=== PATIENT | female | born 1955 | race Caucasian/White ===

== ENCOUNTER 2020-05-23 17:19 | Outpatient (CLI) | payer BC, SELFPAY ==
--- NOTE | ~2020-05-23 | XR_ITS ---
EXAMINATION: XR shoulder LT min 2V EXAM DATE: 05/23/2020 17:47 INDICATION: Left shoulder pain, fall. Initial encounter. TECHNIQUE: The following left shoulder projections obtained: frontal projection with internal rotatio n, frontal projection with external rotation, Grashey, and scapular Y view (4+ views). There is no p rior study for comparison. FINDINGS: No evidence of left shoulder rotator cuff calcific tendinosis. There is mild glenohumeral and acromioclavicular joint primary osteoarthritis. There are no acute fractures or dislocations erica ntified. There is no subcutaneous gas. The soft tissue is unremarkable. There are no radiopaque f oreign bodies. IMPRESSION: No acute osseous findings. Reviewed, dictated and finalized at location A. IMPRESSION: No acute osseous findings.
== END 2020-05-23 17:20 | disposition home or self-care (01) ==
PROVIDERS: PCP Internal Medicine; Visit Provider Physician Assistant
DX: M25.512 Pain in left shoulder (principal)
CPT/HCPCS: 73030

== ENCOUNTER 2020-06-15 09:06 | Outpatient (CLI) | payer BC, SELFPAY ==
--- NOTE | ~2020-06-15 | MM_ITS ---
EXAMINATION: MM screening [facility] BI w [place] HISTORY: Screening mammogram TECHNIQUE: Craniocaudal and mediolateral oblique 3-D tomosynthesis images were obtained and synthetic 2-D images were generated. CAD analysis was submitted and interpreted. COMPARISON: 10/31/2018, 10/11/2017, 07/05/2016 BREAST PARENCHYMAL COMPOSITION: The breasts are heterogeneously dense, which may obscure small masses . FINDINGS: There is no evidence of suspicious mass, calcification, or architectural distortion to sugg est malignancy in either breast. There has been no suspicious interval change. IMPRESSION: 1. No mammographic evidence of malignancy. 2. Recommend routine screening mammography in one year. BI-RADS Category 1: Negative Reviewed, dictated and finalized at location A.
== END 2020-06-15 09:07 | disposition home or self-care (01) ==
LOC: ANHIMG 09:10
PROVIDERS: PCP Internal Medicine; Visit Provider Obstetrics & Gynecology
DX: Z12.31 Encounter for screening mammogram for malignant neoplasm of breast (principal)
CPT/HCPCS: 77063; 77067

== ENCOUNTER 2020-06-29 17:33 | Outpatient (CLI) | payer BC, SELFPAY ==
--- NOTE | ~2020-06-29 | XR_ITS ---
EXAMINATION: XR lumbar spine 6V w bending DATE: 06/29/2020 17:54 INDICATION: Low back pain TECHNIQUE: Anteroposterior, lateral in neutral, flexion and extension, and bilateral oblique views of the lumbar spine, and cone-down lateral view of the lumbosacral junction were obtained. COMPARISON: 02/07/1913 FINDINGS: There is no fracture, dislocation, or subluxation. No laxity is present with flexion or ext ension. The vertebral body heights are maintained. There is mild loss of intervertebral disc space he ight at L5-S1. There is mild facet osteoarthritis of the lower lumbar spine A large volume of colonic stool is present. IMPRESSION: 1. Mild lumbar spondylosis without acute findings or significant interval change. Reviewed, dictated and finalized at location B. IMPRESSION: 1. Mild lumbar spondylosis without acute findings or significant interval holly raines
== END 2020-06-29 17:34 | disposition home or self-care (01) ==
PROVIDERS: PCP Internal Medicine; Visit Provider Physician Assistant
DX: M47.896 Other spondylosis, lumbar region (principal)
CPT/HCPCS: 72114

== ENCOUNTER 2020-07-20 15:15 | Outpatient (RCR) | payer BC, SELFPAY ==
--- NOTE | 2020-06-24 10:17 | PTOPEVAL ---
Thank you for referring Catina Cohen to [facility].? The patient is scheduled to be seen for therapy? 2 x/week for 6 weeks. Please review, sign, date and return this plan of care ELLEN. I agree with and certify that the following plan of care is medically necessary. Referring Physician Date Attending Provider: Shankar Chatman PA-C Referring Provider: MarkelPT Outpatient Evaluation Start: 06/03/20 08:59 Freq: Status: Active Protocol: Document 06/24/20 09:01 ALEJANDRINA (Rec: 06/24/20 09:55 ALEJANDRINA [id number]) Therapy Assessment Status Assessment Status Re-evaluation Evaluation Information Problem Diagnosis L shoulder pain/ LBP Additional Evaluation Detail L shoulder difficulty reaching behind her back and sleep disruption. Low back difficulty/ increased pain with ADLs, lifting, sitting > 30 min, standing, sleep disruption, completing normal housework. Subjective Information Back: Query Text:As Reported By Patient/ Diagnosed with herniated disk Family 3-4 years ago at L5/S1 on R side confirmed with MRI and treated with PT. R toe numbness remains. She reports progression of left leg numbness and tingling to ankle region. States she cont to have to modify how she perform ADL's due to increased pain and symptoms. Reports ice and medication help with her pain and symptoms. Reports increased symptoms with lying down. States her symptoms are better with the pillow between her knees. Improved symptoms with sitting on nigerian ball or standing. L shoulder: Reports the left shoulder pain has increased at rest or with movement with ache/soreness feeling. States the increased symptoms vary daily. Ibuprofen PRN dependent on activity level. Pain Assessment Timing of Pain Assessment Timing of Pain Assessment Re-assessment Pain Scale Pain Scale Used
--- NOTE | 2020-07-20 16:00 | PTOPEVAL ---
Thank you for referring Catina Cohen to [facility].?Pt has received 12 therapy visits to address shoulder and back limitations. She demonstrates improved symptoms and UE function with her left shoulder. But limited progress with her back and left UE strength and symptoms. She is indep with her HEP. She has partially met her therapy goals at this time. She has reached maximal potential with skilled therapy services at this time. DC skilled PT services. Please review, sign, date and return this plan of care ELLEN. I agree with and certify that the following plan of care is medically necessary. Referring Physician Date Attending Provider: Shankar Chatman PA-C *PT Outpatient Evaluation Start: 06/03/20 08:59 Freq: Status: Active Protocol: Document 07/20/20 15:14 CAP (Rec: 07/20/20 15:56 [facility] [id number]) Therapy Assessment Status Assessment Status Assessment Status Re-evaluation/Discharge Note Evaluation Information Problem Diagnosis L shoulder pain/ LBP Additional Evaluation Detail L shoulder difficulty reaching behind her back and sleep disruption. Low back difficulty/ increased pain with ADLs, lifting, sitting > 30 min, standing, sleep disruption, completing normal housework. Subjective Information Back: Query Text:As Reported By Patient/ Diagnosed with herniated disk Family 3-4 years ago at L5/S1 on R side confirmed with MRI and treated with PT. R toe numbness remains. She reports continued left leg numbness and tingling to ankle region. States she cont to have to modify how she perform ADL's due to increased pain and symptoms. Reports ice/heat or medication help with her pain and symptoms. Increased pain with prolonged sitting in the car. If she is unable to weight and decompress the left LE the pain will improve. Reports increased symptoms with lying down. States her symptoms are better with the pillow between her knees. L shoulder: Reports the left shoulder pain has increased with movement
== END 2020-07-25 11:46 | disposition home or self-care (01) ==
LOC: ANHPT 15:15
PROVIDERS: PCP Internal Medicine; Visit Provider Physician Assistant
DX: M54.5 Low back pain (principal); M25.512 Pain in left shoulder
CPT/HCPCS: 97110; 97140; 97530

== ENCOUNTER 2020-07-22 08:38 | Outpatient (CLI) | payer BC, SELFPAY ==
--- NOTE | ~2020-07-22 | MR_ITS ---
EXAMINATION: MR lumbar spine wo con DATE: 07/22/2020 10:11 INDICATION: Lumbar radiculopathy. TECHNIQUE: Magnetic resonance imaging (MRI) of the lumbar spine was performed without intravenous con trast. Sequences included sagittal T2-weighted FSE, sagittal STIR FSE, sagittal T1-weighted FSE, and axial T2-weighted FSE. COMPARISON: Lumbar spine MRI 03/09/2013 FINDINGS: Bone alignment is normal. There are Schmorl's nodes at most levels. There is mildly decreas ed disc height at L2-L3 and moderately decreased disc height at L5-S1. The distal spinal cord signal intensity is normal. The conus medullaris is at L1. The following disc levels are specifically discus sed: L1-L2: The disc does not extend beyond the endplate margin. There is no facet joint osteoarthritis. T here is no neural foraminal stenosis. There is no central canal stenosis. L2-L3: The disc is bulging. There is mild bilateral facet joint osteoarthritis. There is mild bilater al neural foraminal stenosis. There is mild central canal stenosis. L3-L4: The disc is bulging. There is no facet joint osteoarthritis. There is mild bilateral neural fo raminal stenosis. There is mild central canal stenosis. L4-L5: The disc is bulging and has an annular fissure. There is mild left facet joint osteoarthritis. There is mild bilateral neural foraminal stenosis. There is mild central canal stenosis. L5-S1: The disc is bulging with small central extrusion. There is mild bilateral facet joint osteoart hritis. There is mild right and moderate left neural foraminal stenosis. There is mild central canal stenosis. IMPRESSION: 1. Moderate lower lumbar spondylosis. Reviewed, dictated and finalized at location A.
== END 2020-07-22 08:39 | disposition home or self-care (01) ==
LOC: ANHIMG 08:40
PROVIDERS: PCP Internal Medicine; Visit Provider Nurse Practitioner Adult Health
DX: M47.816 Spondylosis without myelopathy or radiculopathy, lumbar region (principal)
CPT/HCPCS: 72148

== ENCOUNTER 2021-06-22 07:36 | Outpatient (CLI) | payer MEDICARE, OTHER, SELFPAY ==
--- NOTE | ~2021-06-22 | MM_ITS ---
EXAMINATION: MM screening [facility] HISTORY: Screening TECHNIQUE: Craniocaudal and mediolateral oblique 3-D tomosynthesis images were obtained and synthetic 2-D images were generated. CAD analysis was submitted and interpreted. COMPARISON: Comparison to multiple prior studies sequentially, with oldest reviewed study dated 04/17. BREAST PARENCHYMAL COMPOSITION: The breasts are heterogenously dense, which may obscure small masses FINDINGS: There is no evidence of suspicious mass, calcification, or architectural distortion to sugg est malignancy in either breast. There has been no suspicious interval change. IMPRESSION: 1. No mammographic evidence of malignancy. 2. Recommend routine screening mammography in one year. BI-RADS Category 1: Negative Reviewed, dictated and finalized at location A.
== END 2021-06-22 07:37 | disposition home or self-care (01) ==
LOC: ANHIMG 07:39
PROVIDERS: PCP Internal Medicine; Visit Provider Internal Medicine
DX: Z12.31 Encounter for screening mammogram for malignant neoplasm of breast (principal)
CPT/HCPCS: 77063; 77067

== ENCOUNTER 2021-06-27 11:39 | Emergency (ER) | payer MEDICARE, OTHER, SELFPAY ==
[2021-06-27 11:54] VITALS: BP 127/61; PULSE 100; RESP 16; TEMP 36.6; O2SAT 99
[2021-06-27] MEDS: predniSONE 20 MG TABLET 80 MG PO (12:32)
--- NOTE | 2021-06-27 13:14 | ED.SKABFB ---
HPI - Skin/Abscess/Foreign Bdy General Chief complaint: Skin/Abscess/Foreign Body Stated complaint: Bee Sting Source: patient and RN notes reviewed Limitations: no limitations History of Present Illness HPI narrative: The patient, who is on minimal routine meds, presents with skin eruption. Patient states prior to arrival she sustained several insect stings to her head and extremities; she then developed a pink, polymorphic, raised rash on her trunk and proximal extremities. Symptoms are mild to moderate, slightly better with 50 mg Benadryl that she took. No cough, wheeze, S OB, prior or reactions to bites, oral edema; symptoms are mild worse with scratching, improved/not worsened since taking the antihistamines. Related Data Home Medications Medication Instructions Recorded Confirmed calcium carbonate-vitamin D3 1 tablet PO BID 09/04/19 05/31/21 [Caltrate with Vitamin D3] omega-3 fatty acids 1,000 mg 1,000 mg PO DAILY 05/23/20 05/31/21 capsule Allergies Allergy/AdvReac Type Severity Reaction Status Date / Time tetracycline Allergy Intermediate Hives Verified 06/27/21 12:27 Review of Systems Review of Systems: General/Constitutional: No weight loss,fever Eyes: N0: Redness,discharge Ears/Nose/Throat: No: Epistaxis,ear discharge Respiratory: Denies: Hemoptysis Gastrointestinal: No Vomiting, Bleeding-rectal Skin: No Lumps, REPORTS eruption Neurologic: No Focal Weakness,Sz Hematologic: Denies: Petechiae/Purpura Psychiatric: No: Suicida ideationl All Other Systems: Reviewed and Negative PMF Past Medical History Medical History Colon cancer screening Hyperlipidemia Spinal stenosis Surgical History Surgical History History of oral surgery [place] teeth removed Family History Family History Sibling Diabetes mellitus Asthma Family history of gout Patient's sister is in good health Patient's brother is in good health Patient's brother is , Onset Age: 28 Father Hypertension Patient's father is in good health Family history of malignant neoplasm of urinary bladder Mother Hypertension Patient's mother is in good health Family history of Parkinson's disease Asthma Other Family history of diabetes mellitus in first degree relative Social History Social History Smoking status: Never smoker Second hand tobacco smoke exposure: No Alcohol intake: current Drinks per week: 2 Substance use: never Comments At time of signature, agree with nursing past medical, surgical, social and family history. There is no relevant family history pertinent to the presenting complaint Exam Narrative: General Appearance: Well appearing, No distress EYE: PERRLA, Conjunctiva clear Ears: External ear normal, insect sting to the left ear and right cheek Nose: Normal nose Mouth/Throat: Normal appearing, Normal lips Neck: Supple Respiratory: Airway patent, No respiratory distress Cardiovascular: RRR Abdomen: Soft, Non-tender, Musculoskeletal: Full ROM Skin: Warm, Dry; urticarial eruption on trunk and proximal extremities Neurological: A&O x3, CN II-X intact Psychiatric: Normal mood, Normal affect Course Vital Signs Vital signs: Vital Signs Temperature 97.8 F 06/27/21 11:54 Pulse Rate 100 06/27/21 11:54 Respiratory Rate 16 06/27/21 11:54 Blood Pressure 127/61 06/27/21 11:54 Pulse Oximetry 99 06/27/21 11:54 Temperature 97.8 F 06/27/21 11:54 Pulse Rate 100 06/27/21 11:54 Respiratory Rate 16 06/27/21 11:54 Blood Pressure 127/61 06/27/21 11:54 Pulse Oximetry 99 06/27/21 11:54 Discharge Plan Discharge Clinical Impression: Urticaria, Pruritic condition Patient Disposition: Home, Self-Care Condition
== END 2021-06-27 13:09 | disposition home or self-care (01) ==
PROVIDERS: Emergency Provider Emergency Medicine; PCP Internal Medicine
DX: L50.9 Urticaria, unspecified (principal); L29.9 Pruritus, unspecified; E78.5 Hyperlipidemia, unspecified
CPT/HCPCS: 99213; G0463; J7512

== ENCOUNTER → 2022-08-02 09:20 | Outpatient (CLI) | payer MEDICARE, OTHER, SELFPAY ==
--- NOTE | ~2022-08-02 | DEXA_ITS ---
Bone Density Report Name: LEIGH ANN BADILLO Age: 67 Sex: Female Ethnicity: White Date of : 1955 Indication: postmenopausal; screening for osteoporosis; prior fracture; Referring Provider: DANIEL GRAHAM Study: Bone densitometry was performed. Exam Date: August 02, 2022 Accession number: [id number] Bone Density: Region BMD T-score Z-score Classification AP Spine (L1-L4) 0.881 -1.5 0.4 Osteopenia Femoral Neck (Left) 0.695 -1.4 0.2 Osteopenia Total Hip (Left) 0.815 -1.0 0.3 Normal Femoral Neck (Right) 0.630 -2.0 -0.4 Osteopenia Total Hip (Right) 0.808 -1.1 0.2 Osteopenia Total Hip Mean 0.812 -1.1 0.3 Osteopenia World Health Organization criteria for BMD impression classify patients as: Normal (T-score at or above -1.0), Osteopenia (T-score between -1.0 and -2.5), or Osteoporosis (T-score at or below -2.5). 10-year Fracture Risk(1): Major Osteoporotic Fracture 17% Hip Fracture 2.7% Reported Risk Factors: [place] (), Neck BMD=0.630, BMI=23.7, previous fracture (1) FRAX(R) Version 3.08. Fracture probability calculated for an untreated patient. Fracture probability may be lower if the patient has received treatment. Clinical Information Provided by Patient: Has had a low trauma fracture Has used the following medications: Vitamin D, Calcium Patient maximum height was 65 Menopause Age: 53 No regular weight bearing exercise Drinks caffeinated beverages Onset of menses at age 17 Number of children 0 Impression: The patient has low bone mass, based on the Right Femoral Neck T-score. The patient has an estimated ten-year risk of hip fracture of 2.7% and an estimated ten-year risk of major fracture of 17%, based on the WHO FRAX algorithm. The patient has risk factors, including: previous fracture. Discussion: BONE DENSITY IS LOW AT ONE OR MORE SKELETAL SITES. This patient's lowest T-score is low at one or more skeletal sites. It meets the World Health Organization's (WHO) criteria for ?low bone mass? (T-score between -1.0 and -2.5). The patient's 10-year risk of fracture as calculated by FRAX is less than the threshold where pharmacological therapy is recommended by the National Osteoporosis Foundation (NOF). However, all treatment decisions require clinical judgment and consideration of individual patient factors, including patient preferences, comorbidities, previous drug use, risk factors not captured in the FRAX model (e.g., frailty, falls, vitamin D deficiency, increased bone turnover, interval significant decline in bone density) and possible under or overestimation of fracture risk by FRAX. The patient should follow a healthful lifestyle (good nutrition with adequate calcium and vitamin D, and appropriate weight-bearing exercise). Follow-Up: Consider repeating this study in 2
== END ==
PROVIDERS: PCP Internal Medicine; Visit Provider Obstetrics & Gynecology
DX: Z78.0 Asymptomatic menopausal state (principal); M85.88 Other specified disorders of bone density and structure, other site; M85.852 Other specified disorders of bone density and structure, left thigh; M85.851 Other specified disorders of bone density and structure, right thigh
CPT/HCPCS: 77080

== ENCOUNTER 2022-08-16 07:21 | Outpatient (CLI) | payer MEDICARE, OTHER, SELFPAY ==
--- NOTE | ~2022-08-16 | MM_ITS ---
EXAMINATION: MM screening [facility] [place] HISTORY: Screening mammogram TECHNIQUE: Craniocaudal and mediolateral oblique 3-D tomosynthesis images were obtained and synthetic 2-D images were generated. CAD analysis was submitted and interpreted. COMPARISON: 06/22/2021, 06/15/2020, and 10/31/2018 BREAST PARENCHYMAL COMPOSITION: There are scattered areas of fibroglandular density. FINDINGS: No suspicious mass, calcification, or architectural distortion are identified in either josi ast to suggest malignancy. There has been no suspicious interval change. IMPRESSION: 1. No mammographic evidence of malignancy. 2. Recommend routine screening mammography in one year. BI-RADS Category 1: Negative Reviewed, dictated and finalized at location A.
== END 2022-08-16 07:22 | disposition home or self-care (01) ==
LOC: ANHIMG 07:23
PROVIDERS: PCP Internal Medicine; Visit Provider Obstetrics & Gynecology
DX: Z12.31 Encounter for screening mammogram for malignant neoplasm of breast (principal)
CPT/HCPCS: 77063; 77067

== ENCOUNTER → 2023-02-27 10:23 | Outpatient (CLI) | payer MEDICARE, OTHER, SELFPAY ==
--- NOTE | ~2023-02-27 | XR_ITS ---
Left foot Technique: AP, oblique, and lateral views were obtained. Clinical History: Pain Findings: There is an oblique, nondisplaced intra-articular fracture at the medial aspect of the base of fourth proximal phalanx. No other fracture or dislocation seen. Joint spaces are preserved withou t erosive or degenerative change. Soft tissues are unremarkable. Impression: Oblique, nondisplaced, intra-articular fracture at the medial aspect of the base of the fourth proxim al phalanx. Reviewed, dictated and finalized at location M. Impression: Oblique, nondisplaced, intra-articular fracture at the medial aspect of the bas e of the fourth proximal phalanx.
== END ==
PROVIDERS: PCP Internal Medicine; Visit Provider Internal Medicine
DX: S92.515A Nondisplaced fracture of proximal phalanx of left lesser toe(s), initial encounter for closed fracture (principal); X58.XXXA Exposure to other specified factors, initial encounter
CPT/HCPCS: 73630

== ENCOUNTER 2023-11-29 13:59 | Outpatient (CLI) | payer MEDICARE, OTHER, SELFPAY ==
--- NOTE | ~2023-11-29 | MM_ITS ---
EXAMINATION: MM screening [facility] HISTORY: Screening mammogram TECHNIQUE: Craniocaudal and mediolateral oblique 3-D tomosynthesis images were obtained and synthetic 2-D images were generated. Bilateral rotated lateral CC views. CAD analysis was submitted and interp reted. COMPARISON: 08/16/2022, 06/22/2021, 06/15/2020, 07/05/2016 bilateral screening mammogram examinations BREAST PARENCHYMAL COMPOSITION: There are scattered areas of fibroglandular density. FINDINGS: There is chronic asymmetry in the posterior upper outer left breast since 07/05/2016. No marvin picious mass, architectural distortion, malignant calcification, skin thickening or retraction of eit her breast is evident. IMPRESSION: 1. No mammographic evidence of malignancy. 2. Recommend routine screening mammography in one year. Reviewed, dictated and finalized at location A. NSED MARRIAGE AND FAMILY THERAPIST
== END 2023-11-29 14:00 | disposition home or self-care (01) ==
LOC: ANHIMG 14:01
PROVIDERS: PCP Internal Medicine; Visit Provider Obstetrics & Gynecology
DX: Z12.31 Encounter for screening mammogram for malignant neoplasm of breast (principal)
CPT/HCPCS: 77063; 77067

== ENCOUNTER 2024-12-10 11:00 | Outpatient (RCR) | payer MEDICARE, OTHER, SELFPAY ==
--- NOTE | 2024-11-18 10:32 | OPREHPOC ---
Outpatient Therapy Plan of Care This is a Multidisciplinary Plan of Care that may contain components documented by all disciplines (PT, OT, and ST.) PT Problem 1 PT Problem #1 Knowledge Deficit PT Goal 1 Goal / Goal Update *indep with HEP Target Visit 8 PT Problem 2 PT Problem #2 Pain PT Goal 1 Goal / Goal Update * pain rating of L shoulder 1/10 at worst Target Visit 8 PT Goal 2 Goal / Goal Update * no pain increase with L shoulder IR motion Target Visit 8 PT Problem 3 PT Problem #3 Impaired Strength PT Goal 1 Goal / Goal Update increase scapular-thoracic strength, to improve posture and position of GH joint: pt stand without winging of scapula Target Visit 8 PT Goal 2 Goal / Goal Update * pt perform 20 reps of prone scapular retraction with L arm overhead Target Visit 8
--- NOTE | 2024-11-18 10:32 | PTOPEVAL1 ---
Assessment and note entered by Amelia Craig, PT Evaluation Information Assessment Status Evaluation ICD-10 Condition Codes (PT) Pain in left shoulder M25.512 Onset March 2024 Subjective Information gradual increase in shoulder pain; chronic pain L shoulder; have new script for anti inflammatory med and it is helping; more pain with pushing down pants, pushing down on arm to raise herself up; history of R shoulder pain, did therapy and it helped her shoulder. R hand dominant xray: per pt: minimal to mild arthritis; activity: go to [employer] 2x/wk for fitness exercises; able to do everything at home, but more pain in L shoulder. Reported Pain Level Pain Score Self Report Additional Pain Score Comments pain range in the past week 0-3/10; top GH to proximal deltoid and bench mover GH joint bruise and tender over shoulder, tender to touch increase pain: shoulder IR, horizontal adduction, push down on arm decrease pain: ice, rest, anti inflammatory med helping no issues with sleeping and able to lie on her L side Assessment PT Clinical Summary Catina has the diagnosis of L shoulder pain. She reports chronic issues with pain in both shoulders, without any trauma or injury to shoulder. Self assessment with Quick DASH rating of 9% limitation in activity level. She is R hand dominant and active, going to a fitness manager 2x/wk. With the evaluation: she has increase pain with L shoulder IR and pushing down on L arm--to stand up from chair; active ROM is WNL, with tightness over pec and rounded shoulder posture; supraspinatus resistance testing is positive; Skilled PT services are indicated for modalities PRN for pain control, therapeutic exercises to increase scapular- thoracic strength, improve posture and position of GH joint and education for HEP and posture. Plan of Care Interventions Electrical Stimulation,Hot Pack/Cold Pack,Manual Therapy,Neuro Re-education,Patient/Caregiver Education,Therapeutic Activities,Therapeutic Exercise,Ultrasound,Other Other Interventions taping PT Services Indicated Yes Treatment Frequency and 1-2x/wk for 8 visits Duration These treatments will address the objective and functional deficits as defined above. The patient will be advanced safely and appropriately in order for the patient to progress towards his/her prior level of function. Additional exercises will be introduced and as well as a comprehensive home exercise program upon discharge, if needed, ?to ensure carryover of functional gains achieved in the clinic. This treatment plan has been reviewed and agreement upon by the patient.
--- NOTE | 2024-12-10 11:48 | PTOPDC ---
Assessment and note entered by Amelia Craig, PT Assessment Status Discharge ICD-10 Condition Codes (PT) Pain in left shoulder M25.512 Onset March 2024 Subjective Information doing better- less pain; moving more; use the theracane for self massage; doing all the exercises at home; Reported Pain Level Pain Score Self Report Additional Pain Score Comments soreness over shoulder; pain range in the past week 0-3/10; points to lateral GH joint increase pain: pushing pants down or pulling them up decrease pain: rest, heat, ice have few more anti inflammatory pills left of the script Assessment PT Clinical Summary Catina has received 8 PT sessions. Compared to the initial evaluation; pain same at 0-3/10; increase strength of L shoulder- scapular complex; active ROM is WNL and no pain increase with motions--initially had pain with IR and horizontal adduction motions; self assessment with Quick DASH rating of 9 to 2% limitation in activity level; continues to have pain in L shoulder- lateral GH joint with pushing pants down or pulling them up. Education completed for HEP and posture awareness of shoulder/trunk. The goals were achieved, except pain rating at the worst rating. Discharge PT. She will continue with her HEP and contact her provider if there are any further issues with her shoulder. Plan of Care PT Services Indicated No
== END 2024-12-10 12:48 | disposition home or self-care (01) ==
LOC: ANHPT 11:00
PROVIDERS: PCP Hospitalist; Visit Provider Hospitalist
DX: M25.512 Pain in left shoulder (principal); G89.29 Other chronic pain
CPT/HCPCS: 97110; 97140; 97161; 97530

== ENCOUNTER 2025-02-12 07:45 | Outpatient (CLI) | payer MEDICARE, OTHER, SELFPAY ==
--- NOTE | ~2025-02-12 | MM_ITS ---
EXAMINATION: MM screening wil[facility] HISTORY: Screening TECHNIQUE: Craniocaudal and mediolateral oblique 3-D tomosynthesis images were obtained and synthetic 2-D images were generated. CAD analysis was submitted and interpreted. COMPARISON: No prior mammogram is available for comparison at this institution. BREAST PARENCHYMAL COMPOSITION: Not dense: There are scattered areas of fibroglandular density. FINDINGS: There is no evidence of suspicious mass, calcification, or architectural distortion to sugg est malignancy in either breast. There has been no suspicious interval change. IMPRESSION: 1. No mammographic evidence of malignancy. 2. Recommend routine screening mammography in one year. BI-RADS Category 1: Negative Reviewed, dictated and finalized at location A.
--- OUTSIDE RECORDS SUMMARY | 2025-02-12 07:48 | XMS_ITS | Referral Summary ---
Author Organization [facility] Address [address] [place] [id number] Care Team Providers Care Radiotelegraph Operator Servicer Name Role Phone Shira Gordon MD, Davon Solomon Primary Care Provide r Tho Warner MD Unavailable [phone] Encounters Date Type Department Care Team Description 02/01/2025 8:00 AM CDT Office Visit [facility] Primary Care [address] [place] [phone] Davon Silva Jr., MD Acute ear pain, left (Primary Dx); Asymptomatic menopause from Last 3 Months Allergies Active Allergy Reactions Criticality Noted Date Comments Tetracycline Hives Medium 09/21/2020 Tramadol Dizziness,Nausea only Low 06/24/2024 Venom-Honey Bee Hives Medium 05/07/2024 Medications calcium carbonate-vitamin D3 1,500 mg (600mg elemental) -800 unit per tablet Take 1 tablet by mouth daily Active flaxseed oiL oil Act jason EPINEPHrine 0.3 mg/0.3 mL auto-injection syringeIndications:Anap hylaxis Inject 0.3 mL (0.3 mg total) into the muscle as instructed once for 1 dose 0.6 mL 024 Active metroNIDAZOLE (METROGEL) 1 % gelIndications:Acne Rosacea Apply topically daily Use daily for Rosacia 60 g 1 024 Active omeprazole (PriLOSEC) 20 mg capsuleIndications:Gustavo roesophageal reflux disease without esophagitis Take 1 capsule (20 mg total) by mouth daily 60 capsule 3 024 Active Additional Information Patient taking differently:20 mg oralDaily PRN, Reported on 02/01/2025 gabapentin (NEURONTIN) 300 mg capsuleIndications:Inte rvertebral disc disorder with radiculopathy of lumbar region Take 2 capsules (600 mg total) by mouth 3 (three) times a day 180 capsule 2 Active Additional Information Patient taking differently:600 mg oral3 times daily PRN, Reported on 02/01/2025 meloxicam (MOBIC) 15 mg tabletIndications:Chron ic left shoulder pain Take 1 tablet (15 mg total) by mouth daily 30 tablet 11 024 2024 Active magnesium oxide 400 mg magnesium capsuleIndications:Leg cramps Take 1 capsule by mouth daily 90 capsule 3 025 Active atorvastatin (LIPITOR) 20 mg tabletIndications:Pure hypercholesterolemia Take 1 tablet (20 mg total) by mouth daily 90 tablet 3 025 2025 Active ciprofloxacin (CILOXAN) 0.3 % ophthalmic solutionIndications:Acu te ear pain, left Use twice day in affected ear 5 mL Active Active Problems Problem Noted Date Diagnosed Date Encounter for Medicare annual wellness exam 01/2024 Assessment & Plan (06/24/2024 10:35 AM CDT): Reviewed previous labs and diagnostic test results. Chronic medical problems evaluated and management plans discussed with the patient. Prescription medications, supplements, vitamins and immunizations reviewed. Wear seatbelts. Use sunscreen. Discussed healthy diet and disease prevention and controlling portions including alcohol Discussed importance of scheduling recommended screening tests. Discussed importance of regular physical examinations for health maintenance. Discussed importance of a living will, advanced directives and establishing or updating healthcare power of ip attorney document and providing our office with a copy. History of basal cell carcinoma (BCC) of skin Leg cramps 05/07/2024 Assessment & Plan (06/24/2024 10:36 AM CDT): Doing well with magnesium Rosacea 05/07/2024 Intervertebral disc disorder with radiculopathy of lumbar region 09/21/2020 Assessment & Plan (05/07/2024 2:56 PM CDT): Takes talib for this Immunizations Immunization Administration Dates Next Due Influenza, Quad, Adjuvantated, Intramuscular Influenza, Quadrivalent, Hig h Dose, Preservative Free, Intrr 07/29/2023,08/02/2022 Influenza, Trivalent, High D ose, Split, Preservative Free, Intramuscular 08/21/2024 Influenza, Unspecified 07/21/2020 Pneumococcal Conjugate Pcv20 02/12/2022 RSV Vaccine, Pref, Recombina nt, Subunit, Adjuvanted, PF, IM (Arexvy) 11/01/2023 Tdap 03/27/2016 ZOSTER Recombinant 09/17/2023,05/29/2023 Social History Tobacco Use Types Packs/Day Years Used Date Smoking Tobacco: Never Smokeless Tobacco: Never Tobacco Cessation:Counseling Given: Not Answered Alcohol Use Standard Drinks/Week Comments Yes 2 (1 standard drink = 0.6 oz pur e alcohol) AUDIT-C Answer Date Recorded Q1: How often do you have a drink containing alc ohol? 2-4 times a month 02/01/2025 Q2: How many drinks containi ng alcohol do you have on a typical day when you are drinking? 1 or 2 02/01/2025 Q3: How often do you have si x or more drinks on one occasion? Never 02/01/2025 PHQ-2 Answer Date Recorded PHQ-2 Total Score (If total score is 3 or more points, staff should administer the PHQ-9) 0 02/01/2025 PHQ-9 Answer Date Recorded PHQ-9 Total Score 1 05/07/2024 Comments Unknown Sex and Gender Information Value Date Recorded Sex Assigned at Not on file Legal Sex Female 7:08 PM PURCHASE ORDER CHECKER Gender Identity Female 04/27/2024 1:52 PM CDT Sexual Orientation Straight 04/27/2024 1: 52 PM CDT Last Filed Vital Signs Vital Sign Reading Time Taken Comments Blood Pressure 116/58 02/01/2025 7:55 AM CDT Pulse 73 02/01/2025 7:55 AM CDT Temperature 36.6 C (97.8 F) 02/01/2025 7:55 AM CDT Respiratory Rate 18 02/01/2025 7:55 AM CDT Oxygen Saturation 96% 02/01/2025 7:55 AM CDT Inhaled Oxygen Concentration - - Weight 68 kg (150 lb) 02/01/2025 7:55 AM CDT Height 162.6 cm (5' 4 ) 02/01/2025 7:55 AM CDT Body Mass Index 25.75 02/01/2025 7:55 AM CDT Plan of Treatment Not on file Procedures Procedure Name Priority Date/Time Associated Diagnosis Comments MAMMOGRAPHY Routine 11/29/2023 10:12 AM PURCHASE ORDER CHECKER DEXA SCAN Routine 08/02/2022 10:09 AM CDT COLONOSCOPY Routine 09/08/2019 10:11 AM PURCHASE ORDER CHECKER from Last 3 Months or Most Recently Relevant to Health Maintenance Results * MAMMOGRAPHY (11/29/2023 10:12 AM PURCHASE ORDER CHECKER) Mammography Normal Historical Provider MD HEALTH MAINTENANCE Final Result * DEXA SCAN (08/02/2022 10:09 AM CDT) Historical Provider MD HEALTH MAINTENANCE Final Result * COLONOSCOPY (09/08/2019 10:11 AM PURCHASE ORDER CHECKER) Scribed Colonoscopy Normal Historical Provider MD HEALTH MAINTENANCE Final Result from Last 3 Months or Most Recently Relevant to Health Maintenance [place] [address] [facility] MEDICARE [employer] [place] Care Teams Radiotelegraph Operator Servicer Relationship Specialty Start Date End Date Davon Silva Jr., MD [facility] [id number] PCP - General Internal Medicine 05/07/24 Tho Warner MD [address] [place] [address] Referring Physician Obstetrics and Gynecology 05/07/24
--- OUTSIDE RECORDS SUMMARY | 2025-02-12 07:48 | XMS_ITS | Encounter Summary ---
Author Organization [facility] Address [address] [place] [address] Care Team Providers Care Chemist Name Role Phone Shira Gordon MD, Davon Solomon Primary Care Provide r Tho Warner MD Unavailable [phone] Encounter Details Date Type Department Care Team ([facility] st Contact Info) Description 10/15/2024 Telephone [facility] Primary Care [address] [phone] Davon Silva Jr., MD [address] [place] [phone] Social History Tobacco Use Types Packs/Day Years Used Date Smoking Tobacco: Never Smokeless Tobacco: Never Alcohol Use Standard Drinks/Week Comments Yes 2 (1 standard drink = 0.6 oz pur e alcohol) AUDIT-C Answer Date Recorded Q1: How often do you have a drink containing alc ohol? 2-3 times a week 05/07/2024 Q2: How many drinks containi ng alcohol do you have on a typical day when you are drinking? 1 or 2 05/07/2024 Q3: How often do you have si x or more drinks on one occasion? 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
--- OUTSIDE RECORDS SUMMARY | 2025-02-12 07:48 | XMS_ITS | Clinical Summary ---
Author Organization [facility] Address [address] [place] [phone] Care Team Providers Care Entertainment Manager Name Role Phone Shira Gordon MD, Davon Solomon Primary Care Provide r Tho Warner MD Unavailable [phone] Allergies Active Allergy Reactions Criticality Noted Date [...] instructed once for 1 dose 0.6 mL Active metroNIDAZOLE (METROGEL) 1 % gelIndications:Acne Rosacea Apply topically daily Use daily for Rosacia 60 g 1 Active omeprazole (PriLOSEC) 20 mg capsuleIndications:Gustavo roesophageal reflux disease without esophagitis Take 1 capsule (20 mg total) by mouth daily 60 capsule 3 Active Additional Information Patient taking differently:20 mg oralDaily PRN, Reported on 02/01/2025 gabapentin (NEURONTIN) 300 mg capsuleIndications:Inte rvertebral disc disorder with radiculopathy of lumbar region Take 2 capsules (600 mg total) by mouth 3 (three) times a day 180 capsule 2 024 Active Additional Information Patient taking differently:600 mg [...] twice day in affected ear 5 mL 025 Active Active Problems Problem Noted Date Diagnosed [...] and establishing or updating healthcare power of family law attorney document and providing our office with a copy. History of basal cell carcinoma (BCC) of skin Leg cramps 05/07/2024 Assessment & Plan (06/24/2024 10:36 AM CDT): Doing well with magnesium Rosacea 05/07/2024 Intervertebral disc disorder with radiculopathy of lumbar region 09/21/2020 Assessment & Plan (05/07/2024 2:56 PM CDT): Takes gaabpentin for this Encounters Date Type Department Care Team Description 02/01/2025 8:00 AM CDT Office Visit [facility] Primary Care [address] [place], [place] [phone] Davon Silva Jr., MD Acute ear pain, left (Primary Dx); Asymptomatic menopause from Last 3 Months Immunizations Immunization Administration Dates Next Due Influenza, Quad, Adjuvantated, Intramuscular Influenza, Quadrivalent, Hig h Dose, Preservative Free, Intrr 07/29/2023,08/02/2022 Influenza, Trivalent, High D ose, Split, Preservative Free, Intramuscular 08/21/2024 Influenza, Unspecified 07/21/2020 Pneumococcal Conjugate Pcv20 02/12/2022 RSV Vaccine, Pref, Recombina nt, Subunit, Adjuvanted, PF, IM (Arexvy) 11/01/2023 Tdap 03/27/2016 ZOSTER Recombinant 09/17/2023,05/29/2023 Medical History Medical History Date Comments Lumbar stenosis Osteopenia Cancer (HCC) 2019 Family History Medical History Relation Name Comments Diabetes Brother 1 Ed Clotting disorder Brother 2 RAMONA Depression Brother 2 RAMONA Bladder Cancer Father Edward Cancer Father Edward Hearing loss Father Edward Cancer Maternal Grandmother Asthma Mother Pamela COPD Mother Pamela Hypertension Mother Pamela Parkinsonism Mother Pamela Heart disease Paternal Grandfather Asthma Sister 1 Amberly Asthma Sister 2 Joe Hypertension Sister 2 Joe Relation Name Status Comments Brother 1 Ed Brother 2 RAMONA Father Edward Maternal Grandmother Mother Pamela Alive Paternal Grandfather Sister 1 Amberly Sister 2 Joe Social History Tobacco Use Types Packs/Day Years [...] on file Legal Sex Female 7:08 PM REGIONAL OFFICE COORDINATOR Gender Identity Female 04/27/2024 1:52 PM CDT Sexual Orientation Straight 04/27/2024 1: 52 PM CDT Obstetrics History Last Filed Vital Signs Vital Sign Reading [...] 02/01/2025 7:55 AM CDT Plan of Treatment Health Maintenance Due Date Last Done Comments Hepatitis C Screening 1955 Hepatitis B Screening 01/12/1973 Covid-19 Vaccine (2023-2 5 season) 2024 05/01/2024, 08/16/2023, 10/01/2022, Additional history exists Osteoporosis Screening-Bone Density Scan 08/02/2024 08/02/2022 Breast Cancer Screening-Mammogram 11/29/2024 024 Fall Risk Assessment 06/24/2025 06/24/2024, 05/07/20 24 Well Visit 65+ 06/24/2025 06/24/2024 Depression Screening 02/01/2026 02/01/2025, 10/12/2024, 06/24/2024, Additional history exists DTaP/Tdap/Td Vaccine (2 - Td or Tdap) 03/27/2026 03/27/2016 Colon Cancer Screening-Colonoscopy 09/08/20292018 Pneumococcal vaccine 65+ Completed 02/12/2022 Zoster Vaccine Completed 09/17/2023, 05/29/2023 Influenza Vaccine Completed 08/21/2024, , 08/02/2022, Additional history exists Procedures Procedure Name Priority Date/Time Associated Diagnosis Comments MAMMOGRAPHY Routine 11/29/2023 10:12 AM REGIONAL OFFICE COORDINATOR DEXA SCAN Routine 08/02/2022 10:09 AM CDT COLONOSCOPY Routine 09/08/2019 10:11 AM REGIONAL OFFICE COORDINATOR from Last 3 Months or Most Recently Relevant to Health Maintenance Results * MAMMOGRAPHY (11/29/2023 10:12 AM REGIONAL OFFICE COORDINATOR) Mammography Normal Historical Provider MD HEALTH MAINTENANCE Final Result * DEXA SCAN (08/02/2022 10:09 AM CDT) Historical Provider HEALTH MAINTENANCE Final Result * COLONOSCOPY (09/08/2019 10:11 AM REGIONAL OFFICE COORDINATOR) Scribed Colonoscopy Normal Historical Provider HEALTH MAINTENANCE Final Result from Last 3 Months or Most Recently Relevant to Health Maintenance Insurance [facility] MEDICARE [employer] [place] [address] Care Teams Entertainment Manager Relationship Specialty Start Date End Date Davon Silva Jr., MD [address] [place] [id number] PCP - General Internal Medicine 05/07/24 Tho Warner MD [address] [address] Referring Physician Obstetrics and Gynecology 05/07/24
== END 2025-02-12 07:46 | disposition home or self-care (01) ==
LOC: ANHIMG 07:46
PROVIDERS: PCP Hospitalist; Visit Provider Obstetrics & Gynecology
DX: Z12.31 Encounter for screening mammogram for malignant neoplasm of breast (principal)
CPT/HCPCS: 77063; 77067